=== PATIENT | male | born 1970 | race African-American/Black ===

== ENCOUNTER 2021-01-16 01:20 | Emergency (ER) | payer BC ==
[~2021-01-16] VITALS: Ht 180.3 cm; Wt 112.0 kg
[2021-01-16] MEDS ORDERED: DOCU-138 MT (02:01)
[2021-01-16] MEDS ORDERED: DOCUSATE SODIUM 100MG CAPSULE PO ONE (02:15)
[2021-01-16 02:20] VITALS: BP 178/80
== END 2021-01-16 02:23 | disposition home or self-care (01) ==
LOC: ER 01:20
DX: K59.00 Constipation, unspecified (principal); E11.9 Type 2 diabetes mellitus without complications
CPT/HCPCS: 99282